=== PATIENT | male | born 1970 | race Caucasian/White ===

== ENCOUNTER 2021-03-24 15:50 | Inpatient (IN) ==
[2021-03-24] MEDS ORDERED: Isovue-370 500 ML BOTTLE IVP ONE (16:42)
[2021-03-24] MEDS ORDERED: Morphine Sulfate 2 MG/ML SYRINGE IVP ONE (16:43)
[2021-03-24] MEDS ORDERED: Ondansetron 4 MG/2 ML VIAL IVP ONE (16:43)
[2021-03-24 16:53] LABS: Basophils % 0.2 %; Eosinophils # 0.1 K/mcL (0.0-0.6); Eosinophils % 0.5 %; Hematocrit 45.2 % (37.5-50.1); Immature Granulocytes % 0.4 % (0-4); Lymphocytes % 8.3 %; Mean Corpuscular HGB Conc 33.6 g/dL (31.6-35.5); Mean Corpuscular Hemoglobin 33.7 pg (28.0-33.3); Mean Corpuscular Volume 100.2 fL (83.0-100.0); Mean Platelet Volume 10.1 fL (9.4-12.4); Monocytes % 8.4 %; Platelet Count 282 K/mcL (140-400); Red Blood Count 4.51 M/mcL (4.19-5.50); Red Cell Distribution Width 13.7 % (11.5-14.5); Segmented Neutrophils % 82.2 %
[2021-03-24 16:58] LABS: Hemoglobin 15.2 g/dL (12.9-16.9); White Blood Count 12.2 K/mcL (4.3-11.1)
[2021-03-24] MEDS ORDERED: 0.9 % Sodium Chloride 1,000 ML IVC ONE (18:31)
[2021-03-24 19:26] LABS: Alanine Aminotransferase 18 Units/L (7-52); Albumin 4.2 g/dL (3.5-5.7); Albumin/Globulin Ratio 1.6 (1.1-2.2); Alkaline Phosphatase 52 Units/L (34-104); Aspartate Amino Transferase 24 Units/L (13-39); BUN/Creatinine Ratio 27 (6-26); Bilirubin,Direct 0.1 mg/dL (0.0-0.2); Bilirubin,Indirect 0.6 mg/dL (0.0-1.0); Bilirubin,Total 0.7 mg/dL (0.3-1.0); Blood Urea Nitrogen 12 mg/dL (6-20); Calcium 10.7 mg/dL (8.6-10.3); Carbon Dioxide 36 mEq/L (23-29); Chloride 92 mEq/L (98-107); Globulin 2.6 g/dL (2.4-3.5); Glucose 81 mg/dL (70-105); Lipase > 1800 Units/L (11-82); Osmolality,Calculated 285 (280-300); Potassium 3.6 mEq/L (3.5-5.1); Sodium 138 mEq/L (136-145); Total Protein 6.8 g/dL (6.4-8.9); Troponin I < 0.03 ng/mL (< 0.04); eGFR For African Americans > 60 (> 60); eGFR For Non-African Americans > 60 (> 60)
[2021-03-24] MEDS ORDERED: 0.9 % Sodium Chloride 1,000 ML IVC STA (19:29)
[2021-03-24 20:28] LABS: Bilirubin,Urine Negative (Negative); Blood,Urine Negative (Negative); Clarity,Urine Clear (Clear); Color,Urine Light-Yellow (Yellow); Glucose,Urine (UA) Normal (Normal); Ketones,Urine Negative (Negative); Leukocyte Esterase,Urine Negative (Negative); Nitrite,Urine Negative (Negative); PH,Urine 6.5 pH Units (5.0-8.0); Protein,Urine Negative (Neg-Trace); Specific Gravity,Urine 1.015 (1.010-1.025); Urobilinogen,Urine Normal (Normal)
[2021-03-24] MEDS ORDERED: cefTRIAXone 1,000 MG in Water for inj. (sterile) 10 ML IVP STA (20:38)
[2021-03-24] MEDS ORDERED: Morphine Sulfate 2 MG/ML SYRINGE IVP STA (21:06)
[2021-03-24] MEDS ORDERED: Acetaminophen 325 MG TABLET PO PRN (22:27)
[2021-03-24] MEDS ORDERED: Naloxone 0.4 MG/ML INJ IVP PRN (22:27)
[2021-03-24] MEDS ORDERED: *HR* LORazepam 2 MG/ML VIAL IVP PRN ×2 (22:30)
[2021-03-25] MEDS ORDERED: Levalbuterol 1 PUFF INHALER IH PRN (00:10)
[2021-03-25] MEDS ORDERED: NON-FORMULARY MEDICATION 1 EACH EACH (Alendronate Sodium [Fosamax] 70 MG Tablet) PO SCH (00:15)
[2021-03-25 00:27] LABS: Amphetamine Screen,Urine Negative ng/mL (Cutoff=1000); Barbiturate Screen,Urine Negative ng/mL (Cutoff=200); Benzodiazepines Screen,Urine Negative ng/mL (Cutoff=200); Cannabinoid Screen,Urine Negative ng/mL (Cutoff = 50); Cocaine Screen,Urine Negative ng/mL (Cutoff= 300); Opiate Screen,Urine Positive ng/mL (Cutoff=300); Phencyclidine Screen,Urine Negative ng/mL (Cutoff=25)
[2021-03-25 00:55] LABS: Basophils % 0.1 %; Eosinophils % 0.6 %; Hematocrit 41.8 % (37.5-50.1); Hemoglobin 13.8 g/dL (12.9-16.9); Immature Granulocytes % 0.6 % (0-4); Lymphocytes # 0.6 K/mcL (0.6-4.6); Lymphocytes % 8.9 %; Mean Corpuscular Hemoglobin 33.6 pg (28.0-33.3); Mean Corpuscular Volume 101.7 fL (83.0-100.0); Monocytes # 0.8 K/mcL (0.0-1.3); Monocytes % 11.3 %; Neutrophils # 5.3 K/mcL (1.6-8.9); Platelet Count 211 K/mcL (140-400); Red Blood Count 4.11 M/mcL (4.19-5.50); Segmented Neutrophils % 78.5 %; White Blood Count 6.7 K/mcL (4.3-11.1)
[2021-03-25 01:05] LABS: INR 1.1; Prothrombin Time 12.7 Seconds (9.4-12.1)
[2021-03-25 01:25] LABS: BUN/Creatinine Ratio 23 (6-26); Blood Urea Nitrogen 11 mg/dL (6-20); Calcium 9.4 mg/dL (8.6-10.3); Carbon Dioxide 31 mEq/L (23-29); Chloride 96 mEq/L (98-107); Glucose 73 mg/dL (70-105); Lipase > 1800 Units/L (11-82); Magnesium 1.3 mg/dL (1.6-2.6); Osmolality,Calculated 280 (280-300); Potassium 3.9 mEq/L (3.5-5.1); Sodium 136 mEq/L (136-145); eGFR For African Americans > 60 (> 60); eGFR For Non-African Americans > 60 (> 60)
[2021-03-25] MEDS: Ringers Solution, Lactated 1,000 ML IVC SCH ×3 (01:30→23:44)
[2021-03-25] MEDS: Morphine Sulfate 2 MG/ML SYRINGE IVP PRN ×3 (01:51→20:58)
[2021-03-25 05:30] LABS: Chol/HDL Ratio 1.7 (0-4.9); Cholesterol 205 mg/dL (< 200); HDL Cholesterol 118 mg/dL (40-59); LDL Cholesterol,Calculated 71 mg/dL (< 100); Triglycerides 79 mg/dL (< 150)
[2021-03-25] MEDS: Gabapentin 300 MG CAPSULE PO SCH ×4 (05:34→20:53)
[2021-03-25] MEDS: BuPROPion XL (24 HR) 150 MG TABLET PO SCH (08:46)
[2021-03-25] MEDS: DilTIAZem CD (24hr) 300 MG CAP.ER.24H PO SCH (08:46)
[2021-03-25] MEDS: GuaiFENesin Liq 200 MG/10 ML UDC PO SCH ×3 (08:46→20:54)
[2021-03-25] MEDS: Apixaban 5 MG TABLET PO SCH ×2 (08:47→20:53)
[2021-03-25] MEDS: Bumetanide 1 MG TABLET PO SCH (08:47)
[2021-03-25] MEDS: *HR* OxyCODONE Immed Rel 5 MG TABLET PO SCH ×2 (08:47→20:54)
[2021-03-25] MEDS: Loratadine 10 MG TABLET PO SCH (08:47)
[2021-03-25] MEDS ORDERED: DICLOFENAC SODIUM TP SCH (09:00)
[2021-03-25] MEDS: Tiotropium 10 INH DOSE IH SCH (10:15)
[2021-03-25] MEDS: predniSONE 5 MG TABLET PO SCH (11:42)
[2021-03-25] MEDS: Piperacillin/Tazobactam 3.375 GM in 0.9 % Sodium Chloride Mini Bag 100 ML IVPB SCH ×2 (14:01→17:29)
[2021-03-25] MEDS: Methyl Salicylate/Menthol 85 APPL/85 GM TUBE TP SCH ×2 (17:30→20:55)
[2021-03-25] MEDS: Thiamine (B-1) 100 MG, Folic Acid 1 MG, MVI, adult with vitamin K 10 ML in 0.9 % Sodi... IVPB SCH (18:32)
[2021-03-25] MEDS: Melatonin 3 MG TABLET PO SCH (20:53)
[2021-03-26] MEDS ORDERED: 0.9 % Sodium Chloride 1,000 ML IVC SCH (00:15)
[2021-03-26] MEDS ORDERED: Levalbuterol Neb 1.25 MG/3 ML IH PRN (02:04)
[2021-03-26 02:12] LABS: Basophils % 0.2 %; Eosinophils # 0.1 K/mcL (0.0-0.6); Hematocrit 34.4 % (37.5-50.1); Immature Granulocytes % 0.3 % (0-4); Lymphocytes # 0.8 K/mcL (0.6-4.6); Lymphocytes % 13.8 %; Mean Corpuscular HGB Conc 32.8 g/dL (31.6-35.5); Mean Corpuscular Hemoglobin 33.1 pg (28.0-33.3); Mean Corpuscular Volume 100.9 fL (83.0-100.0); Mean Platelet Volume 9.6 fL (9.4-12.4); Monocytes # 0.9 K/mcL (0.0-1.3); Monocytes % 14.1 %; Neutrophils # 4.3 K/mcL (1.6-8.9); Platelet Count 186 K/mcL (140-400); Red Blood Count 3.41 M/mcL (4.19-5.50); Red Cell Distribution Width 13.3 % (11.5-14.5); Segmented Neutrophils % 69.6 %; White Blood Count 6.1 K/mcL (4.3-11.1)
[2021-03-26 02:14] LABS: Hemoglobin 11.3 g/dL (12.9-16.9)
[2021-03-26 02:19] LABS: INR 1.4; Prothrombin Time 16.3 Seconds (9.4-12.1)
[2021-03-26 02:48] LABS: Alanine Aminotransferase 14 Units/L (7-52); Albumin 3.5 g/dL (3.5-5.7); Albumin/Globulin Ratio 1.5 (1.1-2.2); Alkaline Phosphatase 43 Units/L (34-104); Aspartate Amino Transferase 20 Units/L (13-39); BUN/Creatinine Ratio 17 (6-26); Bilirubin,Total 0.4 mg/dL (0.3-1.0); Blood Urea Nitrogen 7 mg/dL (6-20); Calcium 8.1 mg/dL (8.6-10.3); Carbon Dioxide 36 mEq/L (23-29); Chloride 92 mEq/L (98-107); Globulin 2.3 g/dL (2.4-3.5); Glucose 106 mg/dL (70-105); Lipase 735 Units/L (11-82); Magnesium 1.6 mg/dL (1.6-2.6); Osmolality,Calculated 278 (280-300); Phosphorous 2.6 mg/dL (2.7-4.5); Potassium 3.1 mEq/L (3.5-5.1); Sodium 135 mEq/L (136-145); Total Protein 5.8 g/dL (6.4-8.9); eGFR For African Americans > 60 (> 60); eGFR For Non-African Americans > 60 (> 60)
[2021-03-26] MEDS ORDERED: Acetaminophen IV 1,000 MG/100 ML BAG IVPB ONE (02:50)
[2021-03-26] MEDS: Piperacillin/Tazobactam 3.375 GM in 0.9 % Sodium Chloride Mini Bag 100 ML IVPB SCH ×3 (03:35→16:59)
[2021-03-26] MEDS: Levalbuterol Neb 1.25 MG/3 ML IH SCH ×4 (04:37→22:54)
[2021-03-26] MEDS: BuPROPion XL (24 HR) 150 MG TABLET PO SCH (08:49)
[2021-03-26] MEDS: Gabapentin 300 MG CAPSULE PO SCH ×4 (08:49→21:14)
[2021-03-26] MEDS: Apixaban 5 MG TABLET PO SCH ×2 (08:50→23:57)
[2021-03-26] MEDS: DilTIAZem CD (24hr) 300 MG CAP.ER.24H PO SCH (08:50)
[2021-03-26] MEDS: Bumetanide 1 MG TABLET PO SCH (08:51)
[2021-03-26] MEDS: *HR* OxyCODONE Immed Rel 5 MG TABLET PO SCH ×2 (08:51→21:15)
[2021-03-26] MEDS: Loratadine 10 MG TABLET PO SCH (08:52)
[2021-03-26] MEDS: GuaiFENesin Liq 200 MG/10 ML UDC PO SCH ×3 (08:52→21:14)
[2021-03-26] MEDS: Budesonide/Formoterol 160/4.5 1 PUFF INH IH SCH ×2 (10:35→22:54)
[2021-03-26] MEDS: Tiotropium 10 INH DOSE IH SCH (10:36)
[2021-03-26] MEDS: 0.9 % Sodium Chloride 1,000 ML IVC SCH ×3 (11:02→23:57)
[2021-03-26] MEDS: Methyl Salicylate/Menthol 85 APPL/85 GM TUBE TP SCH ×4 (13:29→21:19)
[2021-03-26] MEDS ORDERED: [UNRECOGNIZED DRUG - OTHER] IV SCH (14:15)
[2021-03-26] MEDS ORDERED: PROTEINASE INHIBITOR IVPB SCH (16:00)
[2021-03-26] MEDS ORDERED: ALPHA IVPB SCH (16:00)
[2021-03-26] MEDS: Ringers Solution, Lactated 1,000 ML IVC SCH (16:23)
[2021-03-26] MEDS: Thiamine (B-1) 100 MG, Folic Acid 1 MG, MVI, adult with vitamin K 10 ML in 0.9 % Sodi... IVPB SCH (17:31)
[2021-03-26] MEDS ORDERED: Thiamine (B-1) 100 MG, Folic Acid 1 MG, MVI, adult with vitamin K 10 ML in 0.9 % Sodi... IVPB SCH (21:00)
[2021-03-26] MEDS: Melatonin 3 MG TABLET PO SCH (21:14)
[2021-03-27] MEDS: Budesonide/Formoterol 160/4.5 1 PUFF INH IH SCH ×2 (00:05→09:27)
[2021-03-27] MEDS: Levalbuterol Neb 1.25 MG/3 ML IH SCH ×2 (03:14→09:27)
[2021-03-27 05:35] LABS: Basophils % 0.2 %; Eosinophils # 0.2 K/mcL (0.0-0.6); Eosinophils % 3.8 %; Hematocrit 33.3 % (37.5-50.1); Hemoglobin 10.7 g/dL (12.9-16.9); Immature Granulocytes % 0.5 % (0-4); Lymphocytes # 0.7 K/mcL (0.6-4.6); Lymphocytes % 13.2 %; Mean Corpuscular HGB Conc 32.1 g/dL (31.6-35.5); Mean Corpuscular Hemoglobin 32.9 pg (28.0-33.3); Mean Corpuscular Volume 102.5 fL (83.0-100.0); Mean Platelet Volume 9.6 fL (9.4-12.4); Monocytes # 0.8 K/mcL (0.0-1.3); Monocytes % 14.6 %; Neutrophils # 3.7 K/mcL (1.6-8.9); Platelet Count 169 K/mcL (140-400); Red Blood Count 3.25 M/mcL (4.19-5.50); Red Cell Distribution Width 13.8 % (11.5-14.5); Segmented Neutrophils % 67.7 %; White Blood Count 5.5 K/mcL (4.3-11.1)
[2021-03-27 05:55] LABS: BUN/Creatinine Ratio 25 (6-26); Blood Urea Nitrogen 9 mg/dL (6-20); Calcium 7.2 mg/dL (8.6-10.3); Carbon Dioxide 30 mEq/L (23-29); Chloride 106 mEq/L (98-107); Glucose 98 mg/dL (70-105); Lipase 185 Units/L (11-82); Magnesium 1.3 mg/dL (1.6-2.6); Osmolality,Calculated 289 (280-300); Phosphorous 1.8 mg/dL (2.7-4.5); Potassium 3.6 mEq/L (3.5-5.1); Sodium 140 mEq/L (136-145); eGFR For African Americans > 60 (> 60); eGFR For Non-African Americans > 60 (> 60)
[2021-03-27] MEDS: 0.9 % Sodium Chloride 1,000 ML IVC SCH (07:00)
[2021-03-27] MEDS: Gabapentin 300 MG CAPSULE PO SCH (09:15)
[2021-03-27] MEDS: GuaiFENesin Liq 200 MG/10 ML UDC PO SCH (09:15)
[2021-03-27] MEDS: DilTIAZem CD (24hr) 300 MG CAP.ER.24H PO SCH (09:15)
[2021-03-27] MEDS: *HR* OxyCODONE Immed Rel 5 MG TABLET PO SCH (09:16)
[2021-03-27] MEDS: Apixaban 5 MG TABLET PO SCH (09:16)
[2021-03-27] MEDS: Bumetanide 1 MG TABLET PO SCH (09:16)
[2021-03-27] MEDS: BuPROPion XL (24 HR) 150 MG TABLET PO SCH (09:16)
[2021-03-27] MEDS: Loratadine 10 MG TABLET PO SCH (09:16)
[2021-03-27] MEDS: predniSONE 5 MG TABLET PO SCH (09:16)
[2021-03-27] MEDS: Methyl Salicylate/Menthol 85 APPL/85 GM TUBE TP SCH (09:18)
[2021-03-27] MEDS: Tiotropium 10 INH DOSE IH SCH (09:27)
[2021-03-27 10:37] VITALS: BP 120/79; PULSE 89; TEMP 98; O2SAT 97
== END 2021-03-27 14:09 | disposition home or self-care (01) | DRG 439 ==
LOC: EMEROOARM 15:50 → CDU 15:50 → 3ANU 03-25 23:21
PROVIDERS: ADMIT Internal Medicine; ATTEND Internal Medicine